=== PATIENT | female | born 1980 | race Caucasian/White ===

== ENCOUNTER 2018-06-27 04:25 | Emergency (ER) | payer OTHER ==
[2018-06-27 05:33] VITALS: BP 105/84; PULSE 83; TEMP 98.5; BMI 26.6
--- NOTE | 2018-06-27 05:53 | PDOC ---
History of Present Illness - General History Source: Patient Exam Limitations: No Limitations - History of Present Illness Initial Comments: 06/27/18 06:17 The patient is a 38 year old female, with no significant past medical history, who presents to the emergency department with, 6 days of a sore throat. As per patient, her symptoms initially onset 6 days ago with associated subjective fevers and difficulty swallowing. She notes taking a Z-Pack and Tamiflu, without relief. Patient notes her fever has since subsided but, her difficulty swallowing has persisted; prompting her arrival to the ER. She denies any vocal changes. She denies recent headache or dizziness. She denies recent nausea, vomit, diarrhea or constipation. She denies recent dysuria, frequency, urgency or hematuria. She denies recent chest pain or shortness of breath. Allergies: NKDA Primary Care Physician: Dr. Shon Valdez <Tomasa Giron - Last Filed: 06/27/18 06:17> <Evita Nguyen - Last Filed: 06/27/18 06:25> - General Chief Complaint: Sore Throat Stated Complaint: THROAT PROBLEM, BODY ACHES Time Seen by Provider: 06/27/18 05:41 Past History <Tomasa Giron - Last Filed: 06/27/18 06:17> - Reproductive History (#): 1 Para: 0 Therapeutic (s) & number: No Spontaneous : 0 - Suicide/Smoking/Psychosocial Hx Smoking History: Never smoked Have you smoked in the past 12 months: No Information on smoking cessation initiated: No Hx Alcohol Use: No Drug/Substance Use Hx: No Substance Use Type: None <Evita Nguyen - Last Filed: 06/27/18 06:25> - Past Medical History Allergies/Adverse Reactions: Allergies Allergy/AdvReac Type Severity Reaction Status Date / Time No Known Allergies Allergy Verified 06/27/18 05:34 Home Medications: Ambulatory Orders Folic Acid - 1 mg PO DAILY 08/06/13 Ondansetron [Zofran -] 4 mg PO DAILY 08/06/13 Pnv with Ca,No.71/Iron/FA [ Vitamin Tablet] 1 each PO DAILY 08/06/13 predniSONE [Deltasone -] 5 mg PO DAILY 08/06/13 Review of Systems - Review of Systems Able to Perform ROS?: Yes Comments:: 06/27/18 06:17 CONSTITUTIONAL: Absent: fever, chills, diaphoresis, generalized weakness, malaise, loss of appetite HEENT: Present: Throat pain. Difficulty swallowing. Absent: rhinorrhea, nasal congestion, mouth swelling, ear pain, eye pain, visual Changes CARDIOVASCULAR: Absent: chest pain, syncope, palpitations, irregular heart rate, lightheadedness , peripheral edema RESPIRATORY: Absent: cough, shortness of breath, dyspnea with exertion, orthopnea, wheezing, stridor, hemoptysis GASTROINTESTINAL: Absent: abdominal pain, abdominal distension, nausea, vomiting, diarrhea, constipation, melena, hematochezia GENITOURINARY: Absent: dysuria, frequency, urgency, hesitancy, hematuria, flank pain, genital pain MUSCULOSKELETAL: Absent: myalgia, arthralgia, joint swelling SKIN: Absent: rash, itching, pallor HEMATOLOGIC/IMMUNOLOGIC: Absent: easy bleeding, easy bruising, lymphadenopathy, frequent infections ENDOCRINE: Absent: unexplained weight gain, unexplained weight loss, heat intolerance, cold intolerance NEUROLOGIC: Absent: headache, focal weakness or paresthesias, dizziness, unsteady gait, seizure, mental status changes, bladder or bowel incontinence PSYCHIATRIC: Absent: anxiety, depression, suicidal or homicidal ideation, hallucinations. All Other Systems: Reviewed and Negative <Tomasa Giron - Last Filed: 06/27/18 06:17> *Physical Exam - Vital Signs Last Vital Signs Temp Pulse Resp BP Pulse Ox 98.5 F 83 19 105/84 97 06/27/18 04:25 06/27/18 04:25 06/27/18 04:25 06/27/18 04:25 06/27/18 04:25 - Physical Exam Comments: 06/27/18 06:18 GENERAL: Well developed, well nourished. Awake and alert. No acute distress. HEENT: No tonsillar erythema, exudate or edema. Uvula is midline. No hot potato voice. Normocephalic, atraumatic. PERRLA, EOMI. No conjunctival pallor. Sclera are non-icteric. Moist mucous membranes. +NECK: Blt cervical lymphadenopathy. Supple. Full ROM. No JVD. Carotid pulses 2+ and symmetric, without bruits. No thyromegaly. CARDIOVASCULAR: Regular rate and rhythm. No murmurs, rubs, or gallops. Distal pulses are 2+ and symmetric. PULMONARY: No evidence of respiratory distress. Lungs clear to auscultation bilaterally. No wheezing, rales or rhonchi. ABDOMINAL: Soft. Non-tender. Non-distended. No rebound or guarding. No organomegaly. Normoactive bowel sounds. MUSCULOSKELETAL Normal range of motion at all joints. No bony deformities or tenderness. No CVA tenderness. EXTREMITIES: No cyanosis. No clubbing. No edema. No calf tenderness. SKIN: Warm and dry. Normal capillary refill. No rashes. No jaundice. NEUROLOGICAL: Alert, awake, appropriate. Cranial nerves 2-12 intact. No deficits to light touch and temperature in face, upper extremities and lower extremities. No motor deficits in the in face, upper extremities and lower extremities. Normoreflexic in the upper and lower extremities. Normal speech. Toes are down- going bilaterally. Gait is normal without ataxia. PSYCHIATRIC: Cooperative. Good eye contact. Appropriate mood and affect. <Tomasa Girno - Last Filed: 06/27/18 06:17> - Vital Signs Last Vital Signs Temp Pulse Resp BP Pulse Ox 98.5 F 83 19 105/84 97 06/27/18 04:25 06/27/18 04:25 06/27/18 04:25 06/27/18 04:25 06/27/18 04:25 <Evita Nguyen - Last Filed: 06/27/18 06:25> Moderate Sedation - Procedure Monitoring Vital Signs: Procedure Monitoring Vital Signs Temperature 98.5 F 06/27/18 04:25 Pulse Rate 83 06/27/18 04:25 Respiratory Rate 06/27/18 04:25 Blood Pressure 105/84 06/27/18 04:25 O2 Sat by Pulse Oximetry (%) 97 06/27/18 04:25 <Tomasa Giron - Last Filed: 06/27/18 06:17> - Procedure Monitoring Vital Signs: Procedure Monitoring Vital Signs Temperature 98.5 F 06/27/18 04:25 Pulse Rate 83 06/27/18 04:25 Respiratory Rate 06/27/18 04:25 Blood Pressure 105/84 06/27/18 04:25 O2 Sat by Pulse Oximetry (%) 97 06/27/18 04:25 <Evita Nguyen - Last Filed: 06/27/18 06:25> ED Treatment Course - Medications Given in the ED: ED Medications Discontinued Medications Generic Name Dose Route Start Last Admin Trade Name Tristin PRN Reason Stop Dose Admin Acetaminophen 975 mg 06/27/18 05:54 06/27/18 06:04 Tylenol - PO 06/27/18 05:55 975 mg ONCE ONE Administration Dexamethasone 12 mg 06/27/18 06:00 06/27/18 06:04 Decadron - PO 06/27/18 06:01 12 mg ONCE ONE Administration <Tomasa Giron - Last Filed: 06/27/18 06:17> *DC/Admit/Observation/Transfer - Attestations Scribe Attestion: 06/27/18 06:21 Documentation prepared by Tomasa Giron, acting as certified medical aide for Evita Nguyen NP. <Tomasa Giron - Last Filed: 06/27/18 06:17> <Evita Nguyen - Last Filed: 06/27/18 06:25> Diagnosis at time of Disposition: Strep pharyngitis - Discharge Dispostion Disposition: HOME Condition at time of disposition: Fair - Referrals Referrals: Shon Valdez [Primary Care Provider] - 2 Days - Patient Instructions Printed Discharge Instructions: Strep Throat Additional Instructions: gargle with warm salty water. take tylenol every 4hours as needed for pain take ibuprofen every 6 hours as needed for pain Additional Instructions: * Please call your personal physician to report your Emergency Department visit and to report your progress, if any. * If there is no improvement in symptoms in 2 days call your physician. * Return to the Emergency Department for any worsening symptoms. - Post Discharge Activity Forms/Work/School Notes: Back to Work
[2018-06-27] MEDS ORDERED: ACETAMINOPHEN 325 MG TABLET (FP) PO ONE (05:54)
[2018-06-27] MEDS ORDERED: ACETAMINOPHEN 325 MG TABLET (FP) ONE (05:59)
[2018-06-27] MEDS ORDERED: DEXAMETHASONE SOD PHOSPHATE 10 MG/1 ML VIAL ONE (05:59)
[2018-06-27] MEDS ORDERED: DEXAMETHASONE 4 MG TABLET (FP) PO ONE (06:00)
--- NOTE | 2018-06-27 06:04 | PDOC ---
*Physical Exam - Vital Signs Last Vital Signs Temp Pulse Resp BP Pulse Ox 98.5 F 83 19 105/84 97 06/27/18 04:25 06/27/18 04:25 06/27/18 04:25 06/27/18 04:25 06/27/18 04:25 Medical Decision Making - Medical Decision Making 06/27/18 06:03 Patient seen by the advanced practice provider under my direct supervision. Ancillary testing reviewed as necessary. I agree with plan as outlined by the advanced practice provider. *DC/Admit/Observation/Transfer Diagnosis at time of Disposition: Strep pharyngitis - Discharge Dispostion Disposition: HOME Condition at time of disposition: Fair - Referrals Referrals: Shon Valdez [Primary Care Provider] - 2 Days - Patient Instructions Printed Discharge Instructions: Strep Throat Additional Instructions: gargle with warm salty water. take tylenol every 4hours as needed for pain take ibuprofen every 6 hours as needed for pain Additional Instructions: * Please call your personal physician to report your Emergency Department visit and to report your progress, if any. * If there is no improvement in symptoms in 2 days call your physician. * Return to the Emergency Department for any worsening symptoms. - Post Discharge Activity Forms/Work/School Notes: Back to Work
[2018-06-27] MEDS ORDERED: PENICILLIN G BENZATHINE 1,200,000 UNIT/2 ML PFS IM ONE ×2 (06:10→06:15)
== END 2018-06-27 06:49 | disposition home or self-care (01) ==
LOC: JER 04:25
DX: J02.0 Streptococcal pharyngitis (principal); B95.0 Streptococcus, group A, as the cause of diseases classified elsewhere
CPT/HCPCS: 87880; 96372; 99281-25